=== PATIENT | male | born 1980 | race Caucasian/White ===

== ENCOUNTER 2016-08-11 18:35 | Observation (INO) | payer BC, OTHER ==
[~2016-08-11] VITALS: Ht 172.7 cm; Wt 92.8 kg
[2016-08-11] MEDS ORDERED: ASCA500 PO (19:43)
[2016-08-11 19:47] LABS: BASO % 0.7 %; BASO ABS # 0.08 K/uL (0-0.2); COMPLETE YES; EOS % 15.8 %; HEMATOCRIT 47.1 % (42-52); IG% 0.4 %; LYMPH % 32.3 %; LYMPH ABS # 3.61 K/uL (1.2-3.4); MEAN CELL VOLUME 83.2 fL (80-100); MEAN CORPUSCULAR HEMOGLOBIN 29.5 pg (25-34); MEAN CORPUSCULAR HGB CONC 35.5 g/dl (32-36); MEAN PLATELET VOLUME 9.1 fL (7.4-10.4); MONO % 5.6 %; NEUT % 45.2 %; PLATELET COUNT 213 K/uL (130-400); RED BLOOD COUNT 5.66 M/uL (4.7-6.1); URINE APPEARANCE CLEAR (CLEAR); URINE BILIRUBIN NEG (NEG); URINE COLOR YELLOW; URINE NITRITE NEG (NEG); UROBILINOGEN NEG (NEG); WHITE BLOOD COUNT 11.16 K/uL (4.8-10.8); ZZUR CULT IF INDIC CLEAN CATCH NO
[2016-08-11 19:52] LABS: MANUAL MICROSCOPIC REQUIRED? NO; REVIEW REQ? NO
[2016-08-11 19:56] LABS: BUN/CREATININE RATIO 12.1 (10-20); CALCIUM 9.5 mg/dl (8.5-10.1); CREATININE 1.2 mg/dl (0.60-1.40)
[2016-08-11 19:58] LABS: ALB/GLOB RATIO 1.3 (0.9-2)
[2016-08-11] MEDS ORDERED: ONDANSETRON INJ 2 MG/ML 2 ML VIAL IV STA (20:14)
[2016-08-11] MEDS ORDERED: MoRPHine SULFATE 10 MG/ML CARP/VIAL IV STA (20:14)
[2016-08-11] MEDS ORDERED: SODIUM CHLORIDE 0.9% 1000ML 1,000 ML IV STA (20:14)
--- NOTE | 2016-08-11 21:15 | DIAGNOSTIC IMAGING REPORT ---
ABDOMINAL ULTRASOUND, RIGHT UPPER QUADRANT HISTORY: epigastric abdominal pain . COMPARISON: None. FINDINGS: Pancreas: Obscured by overlying bowel gas. Liver: The liver is echogenic consistent with fatty change. Gallbladder: No gallbladder wall thickening. No gallstones. CBD: 3 mm. Right kidney: No hydronephrosis. IMPRESSION: 1. Normal gallbladder. No gallstones. 2. Hepatic steatosis. 3. Pancreas obscured by overlying bowel gas. Electronically signed by: Toro Bautista M.D. 08/11/2016 9:13 PM Dictated Date/Time: 08/11/2016 9:12 PM
--- NOTE | 2016-08-11 23:48 | EMERGENCY ROOM VISIT NOTE ---
History Report prepared by Shantal: Brendan Pelletier Under the Supervision of: Dr. Yinka Guerrero D.O. First contact with patient: 19:26 Chief Complaint: ABDOMINAL PAIN Stated Complaint: STOMACH PAIN FOR A WEEK Nursing Triage Summary: Patient states "I have stomach pains." Patient reports symptoms started approx 1 week with diarrhea. History of Present Illness The patient is a 36 year old male who presents to the Emergency Room with complaints of intermittent upper abdominal pain beginning one week prior to arrival. He currently rates his discomfort as a 7/10 in severity. The patient states his symptoms worsen with eating, especially with raw vegetables. He notes he will experience abdominal pain approximately an hour after eating. The patient denies experience anything like this in the past. He denies anything improving his discomfort. The patient states his last bowel movement was six hours ago. He denies previous abdominal surgeries. Pt denies headache, change in vision, fevers, chest pain, shortness of breath, nausea, vomiting, diarrhea, pain with urination, and melena. He does admit to diarrhea for the past 2 weeks. No recent travel, drinking from streams, backpacking or hiking. 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 A total of 10 systems reviewed and were otherwise negative. Past Medical & Surgical Surgical Problems: (1) S/P shoulder surgery Family History Diabetes mellitus Hypertension Social History Smoking Status: Former Smoker Alcohol Use: occasionally Drug Use: none Marital Status: Housing Status: lives with family Occupation Status: employed Current/Historical Medications Scheduled Ascorbic Acid (Vitamin C), 500 MG PO DAILY Allergies Coded Allergies: Amoxicillin (Verified Allergy, Severe, HIVES A CHILD, 08/11/16) Clavulanic Acid (Verified Allergy, Severe, HIVES A CHILD, 08/11/16) Physical Exam Vital Signs Date Time Temp Pulse Resp B/P Pulse Ox O2 Delivery O2 Flow Rate FiO2 08/11/16 22:46 60 18 111/74 98 Room Air 08/11/16 21:15 62 18 145/90 97 Room Air 08/11/16 20:38 63 18 131/74 97 Room Air 08/11/16 18:51 36.8 64 18 125/83 97 Room Air Physical Exam GENERAL: sitting up in bed, disheveled, no acute distress, non-toxic EYE EXAM: normal conjunctiva OROPHARYNX: no exudate, no erythema, lips, buccal mucosa, and tongue normal and mucous membranes are moist NECK: supple, no nuchal rigidity, no adenopathy, non-tender LUNGS: Clear to auscultation. Normal chest wall mechanics HEART: no murmurs, S1 normal and S2 normal ABDOMEN: Tenderness to palpation in epigastrium, abdomen soft, normo-active bowel sounds, no masses, no rebound or guarding. BACK: Back is symmetrical on inspection and there is no deformity, no midline tenderness, no CVA tenderness. SKIN: no rashes and no bruising UPPER EXTREMITIES: upper extremities are grossly normal. LOWER EXTREMITIES: No pitting edema. NEURO EXAM: Normal sensorium, cranial nerves II-XII grossly intact, normal speech, no gross weakness of arms, no gross weakness of legs. Medical Decision & Procedures ER Provider Diagnostic Interpretation: Radiology results as stated below per my review and the radiologist's interpretation: ABDOMINAL ULTRASOUND, RIGHT UPPER QUADRANT HISTORY: epigastric abdominal pain . COMPARISON: None. FINDINGS: Pancreas: Obscured by overlying bowel gas. Liver: The liver is echogenic consistent with fatty change. Gallbladder: No gallbladder wall thickening. No gallstones. CBD: 3 mm. Right kidney: No hydronephrosis. IMPRESSION: 1. Normal gallbladder. No gallstones. 2. Hepatic steatosis. 3. Pancreas obscured by overlying bowel gas. Electronically signed by: Toro Bautista M.D. 08/11/2016 9:13 PM Laboratory Results 08/11/16 19:30 Red Blood Count 5.66, Mean Corpuscular Volume 83.2, Mean Corpuscular Hemoglobin 29.5, Mean Corpuscular Hemoglobin Concent 35.5, Mean Platelet Volume 9.1, Neutrophils (%) (Auto) 45.2, Lymphocytes (%) (Auto) 32.3, Monocytes (%) (Auto) 5.6, Eosinophils (%) (Auto) 15.8, Basophils (%) (Auto) 0.7, Neutrophils # (Auto ) 5.04, Lymphocytes # (Auto) 3.61, Monocytes # (Auto) 0.62, Eosinophils # (Auto ) 1.76, Basophils # (Auto) 0.08 08/11/16 19:30 Test 4/26/17 19:30 White Blood Count 11.16 K/uL (4.8-10.8) Red Blood Count 5.66 M/uL (4.7-6.1) Hemoglobin 16.7 g/dL (14.0-18.0) Hematocrit 47.1 % (42-52) Mean Corpuscular Volume 83.2 fL (80-100) Mean Corpuscular Hemoglobin 29.5 pg (25-34) Mean Corpuscular Hemoglobin Concent 35.5 g/dl (32-36) Platelet Count 213 K/uL (130-400) Mean Platelet Volume 9.1 fL (7.4-10.4) Neutrophils (%) (Auto) 45.2 % Lymphocytes (%) (Auto) 32.3 % Monocytes (%) (Auto) 5.6 % Eosinophils (%) (Auto) 15.8 % Basophils (%) (Auto) 0.7 % Neutrophils # (Auto) 5.04 K/uL (1.4-6.5) Lymphocytes # (Auto) 3.61 K/uL (1.2-3.4) Monocytes # (Auto) 0.62 K/uL (0.11-0.59) Eosinophils # (Auto) 1.76 K/uL (0-0.5) Basophils # (Auto) 0.08 K/uL (0-0.2) RDW Standard Deviation 37.1 fL (36.4-46.3) RDW Coefficient of Variation 12.3 % (11.5-14.5) Immature Granulocyte % (Auto) 0.4 % Immature Granulocyte # (Auto) 0.05 K/uL (0.00-0.02) Urine Color YELLOW Urine Appearance CLEAR (CLEAR) Urine pH 5.0 (4.5-7.5) Urine Specific [place] 1.020 (1.000-1.030) Urine Protein NEG (NEG) Urine Glucose (UA) NEG (NEG) Urine Ketones NEG (NEG) Urine Occult Blood NEG (NEG) Urine Nitrite NEG (NEG) Urine Bilirubin NEG (NEG) Urine Urobilinogen NEG (NEG) Urine Leukocyte Esterase NEG (NEG) Anion Gap 5.0 mmol/L (3-11) Est Creatinine Clear Calc Drug Dose 95.0 ml/min Estimated GFR () 90.3 Estimated GFR (Non- 77.9 BUN/Creatinine Ratio 12.1 (10-20) Calcium Level 9.5 mg/dl (8.5-10.1) Total Bilirubin 0.6 mg/dl (0.2-1) Aspartate Amino Transf (AST/SGOT) 27 U/L (15-37) Alanine Aminotransferase (ALT/SGPT) 38 U/L (12-78) Alkaline Phosphatase 75 U/L (45-117) Total Protein 7.9 gm/dl (6.4-8.2) Albumin 4.5 gm/dl (3.4-5.0) Globulin 3.4 gm/dl (2.5-4.0) Albumin/Globulin Ratio 1.3 (0.9-2) Lipase 1194 U/L (73-393) Laboratory results per my review. Medications Administered Medications (Trade) Dose Ordered Sig/Bee Route Start Time Stop Time Status Last Admin Dose Admin Sodium Chloride (Nss 1000ml) 1,000 ml @ 999 mls/hr Q1H1M STAT IV 08/11/16 20:14 08/11/16 21:14 DC 08/11/16 20:29 999 MLS/HR Morphine Sulfate (MoRPHine SULFATE INJ) 6 mg NOW STAT IV 08/11/16 20:14 08/11/16 20:15 DC 08/11/16 20:29 6 MG Ondansetron HCl (Zofran Inj) 4 mg NOW STAT IV 08/11/16 20:14 08/11/16 20:15 DC 08/11/16 20:30 4 MG ED Course ED COURSE: Vital signs were reviewed and showed normal vitals. The patients medical record was reviewed The above diagnostic studies were performed and reviewed. ED treatments and interventions as stated above. 1952: The patient was evaluated in room C7. A complete history and physical examination was performed. 2013: Ordered Zofran Inj 4 mg IV, Morphine Sulfate 6 mg IV, Sodium Chloride 1, 000 ml @ 999 mls/hr IV. 2200: Reevaluated and updated the patient at this time. 8: I spoke to RANDI Arechiga (Hospitalist) about the patient's case, and he will follow the patient for further evaluation. 2220: Upon reevaluation, the patient is doing well.I discussed my findings with the patient and He understands and agrees with the treatment plan. Based on the patients age, coexisting illnesses, exam and lab findings the decision to treat as an inpatient was made. The patient remained stable while under my care. The patient will be evaluated for further management. Medical Decision Differential diagnoses includes but is not limited to gastritis, peptic ulcer disease, GERD, gallbladder disease, pancreatitis, small bowel obstruction, acute coronary syndrome, pericarditis, ischemic bowel, irritable bowel disease, irritable bowel syndrome, appendicitis, diverticulitis, malignancy, hernia, urinary tract infection, torsion, perforation, trauma, infectious. Patient is a 36-year-old male who presents the ER for a gastric abdominal pain which has been present for the past week. Labs show no significant leukocytosis. BMP along with LFTs, bilirubin was unremarkable. Lipase is elevated at 1200. UA was unremarkable. Ultrasound gallbladder was normal. Patient does not drink alcohol. Patient was given fluids along with morphine and had improvement of his pain. With his symptoms seem present for the past week and worsening/not resolving I felt was prudent for him to be nothing by mouth, hydrated and given pain meds for resolution of his pancreatitis. Patient was updated bedside and discussed with internal medicine permission. Consults Time Called: 2213 Consulting Physician: RANDI Arechiga (Hospitalist) Returned Call: 2217 I spoke to RANDI Arechiga (Hospitalist) about the patient's case, and he will follow the patient for further evaluation. Impression Primary Impression: Pancreatitis Scribe Attestation The scribe's documentation has been prepared under my direction and personally reviewed by me in its entirety. I confirm that the note above accurately reflects all work, treatment, procedures, and medical decision making performed by me. Departure Information Dispostion Being Evaluated By Hospitalist (RANDI Arechiga (Hospitalist)) Referrals Mayra Coe MD (PCP) Problem Qualifiers Primary Impression: Pancreatitis Chronicity: acute Pancreatitis type: unspecified pancreatitis type Acute pancreatitis complication: unspecified Qualified Codes: K85.90 - Acute pancreatitis without necrosis or infection, unspecified
[2016-08-12] MEDS ORDERED: HYDROmorphone INJ 0.5 MG/0.5 ML SYR IV STA (00:16)
[2016-08-12] MEDS ORDERED: ONDANSETRON INJ 2 MG/ML 2 ML VIAL IV STA (00:16)
[2016-08-12] MEDS ORDERED: SODIUM CHLORIDE 0.9% 500ML 500 ML IV STA (00:16)
[2016-08-12] MEDS ORDERED: ACETAMINOPHEN 325 MG TAB PO PRN (00:30)
[2016-08-12] MEDS ORDERED: ONDANSETRON INJ 2 MG/ML 2 ML VIAL IV PRN (00:30)
[2016-08-12] MEDS ORDERED: ZOLPIDEM TARTRATE 5 MG TAB PO PRN (00:30)
[2016-08-12] MEDS ORDERED: MAGNESIUM HYDROXIDE SUSP 30 ML UDC PO PRN (00:30)
[2016-08-12] MEDS ORDERED: HYDROmorphone INJ 0.5 MG/0.5 ML SYR IV PRN (00:30)
[2016-08-12] MEDS ORDERED: POLYETHYLENE (MIRALAX) 17 GM PACK PO PRN (00:30)
[2016-08-12] MEDS ORDERED: ALUMINUM/MAGNESIUM/SIMETH (MAALOX MAX) 30 ML UDC PO PRN (00:30)
--- NOTE | 2016-08-12 00:43 | History and Physical ---
History & Physical Date & Time of Service: Aug 12, 2016 at 00:33 Chief Complaint: Stomach Pain For A Week Primary Care Physician: Mayra Coe MD History of Present Illness Source: patient 36 y/o M without significant medical history, presenting with B/L upper quadrant abdominal pain x 1 week in addition to diarrhea. The pain worsens 30 min to one hour after eating. He states that the diarrhea occurs approximately 2 hours after eating. He has had nausea but no vomiting, He denies fevers. An US obtained in the ER was negative for biliary disease. Initial labs are notable for mild leukocytosis and an elevated lipase. The pancreas was not visualized on US. 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 Drug Use: none Marital Status: Occupational Status: employed Allergies Coded Allergies: Amoxicillin (Verified Allergy, Severe, HIVES A CHILD, 08/11/16) Clavulanic Acid (Verified Allergy, Severe, HIVES A CHILD, 08/11/16) Home Medications Scheduled Ascorbic Acid (Vitamin C), 500 MG PO DAILY Review of Systems Constitutional: No chills, No fever, No sweats Eyes: No eye pain, No worsening of vision ENT: No hearing loss, No nasal symptoms, No unusual epistaxis Respiratory: No cough, No sputum, No wheezing Cardiovascular: No PND, No chest pain, No orthopnea Abdomen: + diarrhea, + nausea, + pain, No vomiting Musculoskeletal: No joint pain, No muscle pain Genitourinary - Male: No dysuria, No hematuria, No urinary frequency, No urinary urgency Neurologic: No memory loss, No paralysis, No weakness Psychiatric: No depression symptoms Endocrine: No fatigue Hematologic / Lymphatic: No abnormal bleeding/bruising Integumentary: No rash Allergic / Immunologic: No environmental allergies Physical Exam Vital Signs Date Time Temp Pulse Resp B/P Pulse Ox O2 Delivery O2 Flow Rate FiO2 08/11/16 22:46 60 18 111/74 98 Room Air 08/11/16 21:15 62 18 145/90 97 Room Air 08/11/16 20:38 63 18 131/74 97 Room Air 08/11/16 18:51 36.8 64 18 125/83 97 Room Air General Appearance: WD/WN, no apparent distress Head: normocephalic, atraumatic Eyes: normal inspection, PERRL, EOMI ENT: normal ENT inspection, pharynx normal Neck: supple, no JVD Respiratory/Chest: chest non-tender, lungs clear, normal breath sounds, no respiratory distress, no accessory muscle use Cardiovascular: regular rate, rhythm, no edema, no gallop, no JVD, no murmur, normal peripheral pulses Abdomen/GI: normal bowel sounds, non tender, soft, + pertinent finding (There was no abdominal tenderness to palpation) Back: normal inspection, no CVA tenderness Extremities/Musculoskelatal: normal inspection, no calf tenderness, normal capillary refill, no pedal edema, normal range of motion Neurologic/Psych: combination man II-XII nml as tested, no motor/sensory deficits, alert, normal mood/affect, normal reflexes, oriented x 3 Skin: normal color, warm/dry, no rash Diagnostics Laboratory Results Results Past 24 Hours Test 08/11/16 19:30 Range/Units White Blood Count 11.16 4.8-10.8 K/uL Red Blood Count 5.66 4.7-6.1 M/uL Hemoglobin 16.7 14.0-18.0 g/dL Hematocrit 47.1 42-52 % Mean Corpuscular Volume 83.2 80-100 fL Mean Corpuscular Hemoglobin 29.5 25-34 pg Mean Corpuscular Hemoglobin Concent 35.5 32-36 g/dl Platelet Count 213 130-400 K/uL Mean Platelet Volume 9.1 7.4-10.4 fL Neutrophils (%) (Auto) 45.2 % Lymphocytes (%) (Auto) 32.3 % Monocytes (%) (Auto) 5.6 % Eosinophils (%) (Auto) 15.8 % Basophils (%) (Auto) 0.7 % Neutrophils # (Auto) 5.04 1.4-6.5 K/uL Lymphocytes # (Auto) 3.61 1.2-3.4 K/uL Monocytes # (Auto) 0.62 0.11-0.59 K/uL Eosinophils # (Auto) 1.76 0-0.5 K/uL Basophils # (Auto) 0.08 0-0.2 K/uL RDW Standard Deviation 37.1 36.4-46.3 fL RDW Coefficient of Variation 12.3 11.5-14.5 % Immature Granulocyte % (Auto) 0.4 % Immature Granulocyte # (Auto) 0.05 0.00-0.02 K/uL Urine Color YELLOW Urine Appearance CLEAR CLEAR Urine pH 5.0 4.5-7.5 Urine Specific [place] 1.020 1.000-1.030 Urine Protein NEG NEG Urine Glucose (UA) NEG NEG Urine Ketones NEG NEG Urine Occult Blood NEG NEG Urine Nitrite NEG NEG Urine Bilirubin NEG NEG Urine Urobilinogen NEG NEG Urine Leukocyte Esterase NEG NEG Sodium Level 142 136-145 mmol/L Potassium Level 4.0 3.5-5.1 mmol/L Chloride Level 108 98-107 mmol/L Carbon Dioxide Level 29 21-32 mmol/L Anion Gap 5.0 3-11 mmol/L Blood Urea Nitrogen 14 7-18 mg/dl Creatinine 1.20 0.60-1.40 mg/dl Est Creatinine Clear Calc Drug Dose 95.0 ml/min Estimated GFR () 90.3 Estimated GFR (Non- 77.9 BUN/Creatinine Ratio 12.1 10-20 Random Glucose 86 70-99 mg/dl Calcium Level 9.5 8.5-10.1 mg/dl Total Bilirubin 0.6 0.2-1 mg/dl Aspartate Amino Transf (AST/SGOT) 27 15-37 U/L Alanine Aminotransferase (ALT/SGPT) 38 12-78 U/L Alkaline Phosphatase 75 45-117 U/L Total Protein 7.9 6.4-8.2 gm/dl Albumin 4.5 3.4-5.0 gm/dl Globulin 3.4 2.5-4.0 gm/dl Albumin/Globulin Ratio 1.3 0.9-2 Lipase 1194 73-393 U/L Diagnostic Radiology US abdomen 1. Normal gallbladder. No gallstones. 2. Hepatic steatosis. 3. Pancreas obscured by overlying bowel gas. Impression Assessment and Plan 36 y/o M without significant medical history, presenting with B/L upper quadrant abdominal pain x 1 week in addition to diarrhea. The pain worsens 30 min to one hour after eating. He states that the diarrhea occurs approximately 2 hours after eating. He has had nausea but no vomiting, He denies fevers. An US obtained in the ER was negative for biliary disease. Initial labs are notable for mild leukocytosis and an elevated lipase. The pancreas was not visualized on US. As his pain is b/l and his exam and labs are equivocal, this may be either a gallbladder or pancreatic process leading to diarrhea and less likely an infectious process. We will treat conservatively with IVF, pain control and antiemetics. The pt will be kept NPO pending AM reevaluation. If there is no improvement we would consider an abdominal CT, a PIPIDA scan and a GI consult. Quantitative fecal fat ordered. We will culture his stool as based on his symptoms and his vocation, giardia may be a consideration. Full - Code - Lovenox prophylaxis Total time for this admit including review of labs, meds, US - discussion with Pt abd ER attending - 30 min VTE Prophylaxis VTE Risk Assessment Done? Y/N: Yes Risk Level: Low
[2016-08-12] MEDS ORDERED: IV FLUIDS COMPLETED PRN (01:45)
[2016-08-12] MEDS: D5W AND NSS 1,000 ML IV SCH ×2 (01:45→06:29)
[2016-08-12 01:49] VITALS: BP 118/70; PULSE 51; TEMP 36.4; O2SAT 96; Ht 172.7 cm; Wt 92.8 kg
[2016-08-12 06:40] LABS: INR 1.1 (0.9-1.1); PROTHROMBIN TIME (PATIENT) 11.9 SECONDS (9.0-12.0)
[2016-08-12 07:05] LABS: BUN/CREATININE RATIO 9.8 (10-20); CALCIUM 8.1 mg/dl (8.5-10.1); CREATININE 1.1 mg/dl (0.60-1.40); MAGNESIUM 2.1 mg/dl (1.8-2.4); POTASSIUM 3.9 mmol/L (3.5-5.1)
[2016-08-12 07:29] VITALS: BP 111/64; PULSE 62; TEMP 36.5; O2SAT 97
[2016-08-12] MEDS ORDERED: ENOXAPARIN 40 MG/0.4 ML SYR SQ SCH (08:00)
[2016-08-12] MEDS ORDERED: OPTIRAY 320 IV PRN (11:00)
--- NOTE | 2016-08-12 14:14 | Hospitalist Progress Note ---
Hospitalist Progress Note Date of Service Aug 12, 2016. Subjective improved abd pain. no n/v. Medications Medications (Trade) Dose Ordered Sig/Bee Route Start Time Stop Time Status Last Admin Dose Admin Sodium Chloride (Nss 1000ml) 1,000 ml @ 999 mls/hr Q1H1M STAT IV 08/11/16 20:14 08/11/16 21:14 DC 08/11/16 20:29 999 MLS/HR Morphine Sulfate (MoRPHine SULFATE INJ) 6 mg NOW STAT IV 08/11/16 20:14 08/11/16 20:15 DC 08/11/16 20:29 6 MG Ondansetron HCl (Zofran Inj) 4 mg NOW STAT IV 08/11/16 20:14 08/11/16 20:15 DC 08/11/16 20:30 4 MG Hydromorphone HCl (Dilaudid Inj) 0.5 mg NOW STAT IV 08/12/16 00:16 08/12/16 00:17 DC 08/12/16 00:39 0.5 MG Ondansetron HCl 4 mg 4 mg NOW STAT IV 08/12/16 00:16 08/12/16 00:17 DC 08/12/16 00:39 4 MG Sodium Chloride (Nss 500ml) 500 ml @ 999 mls/hr Q31M STAT IV 08/12/16 00:16 08/12/16 00:46 DC 08/12/16 00:38 999 MLS/HR Enoxaparin Sodium 40 mg 40 mg Q24H SQ 08/12/16 08:00 09/11/16 07:59 08/12/16 09:43 40 MG Dextrose/Sodium Chloride (D5W And Nss) 1,000 ml @ 200 mls/hr Q5H IV 08/12/16 00:30 08/12/16 10:29 DC 08/12/16 06:29 200 MLS/HR Miscellaneous (Iv Fluids Completed) 1 ea PRN PRN N/A 08/12/16 01:45 08/12/17 01:44 08/12/16 12:18 1 EA Objective Vital Signs Date Time Temp Pulse Resp B/P Pulse Ox O2 Delivery O2 Flow Rate FiO2 08/12/16 07:44 Room Air 08/12/16 07:29 36.5 62 18 111/64 97 Room Air 08/12/16 01:49 36.4 51 16 118/70 96 Room Air 08/12/16 01:32 36.8 63 18 124/77 98 08/12/16 01:28 63 18 124/77 98 Room Air 08/12/16 00:24 63 18 124/77 98 Room Air 08/11/16 22:46 60 18 111/74 98 Room Air 08/11/16 21:15 62 18 145/90 97 Room Air 08/11/16 20:38 63 18 131/74 97 Room Air 08/11/16 18:51 36.8 64 18 125/83 97 Room Air Physical Exam General Appearance: WD/WN Eyes: normal inspection, PERRL ENT: normal ENT inspection, hearing grossly normal Neck: supple, no adenopathy Respiratory/Chest: chest non-tender, lungs clear Cardiovascular: regular rate, rhythm, no edema, no gallop, + JVD Abdomen: normal bowel sounds, soft Extremities: normal range of motion, non-tender Neurologic/Psychiatric: stroke program coordinator II-XII nml as tested, alert, oriented x 3 Laboratory Results Last 24 Hours Test 08/11/16 19:30 08/12/16 00:55 08/12/16 06:14 White Blood Count 11.16 K/uL Red Blood Count 5.66 M/uL Hemoglobin 16.7 g/dL Hematocrit 47.1 % Mean Corpuscular Volume 83.2 fL Mean Corpuscular Hemoglobin 29.5 pg Mean Corpuscular Hemoglobin Concent 35.5 g/dl Platelet Count 213 K/uL Mean Platelet Volume 9.1 fL Neutrophils (%) (Auto) 45.2 % Lymphocytes (%) (Auto) 32.3 % Monocytes (%) (Auto) 5.6 % Eosinophils (%) (Auto) 15.8 % Basophils (%) (Auto) 0.7 % Neutrophils # (Auto) 5.04 K/uL Lymphocytes # (Auto) 3.61 K/uL Monocytes # (Auto) 0.62 K/uL Eosinophils # (Auto) 1.76 K/uL Basophils # (Auto) 0.08 K/uL RDW Standard Deviation 37.1 fL RDW Coefficient of Variation 12.3 % Immature Granulocyte % (Auto) 0.4 % Immature Granulocyte # (Auto) 0.05 K/uL Urine Color YELLOW Urine Appearance CLEAR Urine pH 5.0 Urine Specific [place] 1.020 Urine Protein NEG Urine Glucose (UA) NEG Urine Ketones NEG Urine Occult Blood NEG Urine Nitrite NEG Urine Bilirubin NEG Urine Urobilinogen NEG Urine Leukocyte Esterase NEG Sodium Level 142 mmol/L 144 mmol/L Potassium Level 4.0 mmol/L 3.9 mmol/L Chloride Level 108 mmol/L 112 mmol/L Carbon Dioxide Level 29 mmol/L 27 mmol/L Anion Gap 5.0 mmol/L 5.0 mmol/L Blood Urea Nitrogen 14 mg/dl 11 mg/dl Creatinine 1.20 mg/dl 1.10 mg/dl Est Creatinine Clear Calc Drug Dose 95.0 ml/min 103.6 ml/min Estimated GFR () 90.3 100.3 Estimated GFR (Non- 77.9 86.5 BUN/Creatinine Ratio 12.1 9.8 Random Glucose 86 mg/dl 123 mg/dl Calcium Level 9.5 mg/dl 8.1 mg/dl Total Bilirubin 0.6 mg/dl Aspartate Amino Transf (AST/SGOT) 27 U/L Alanine Aminotransferase (ALT/SGPT) 38 U/L Alkaline Phosphatase 75 U/L Total Protein 7.9 gm/dl Albumin 4.5 gm/dl Globulin 3.4 gm/dl Albumin/Globulin Ratio 1.3 Lipase 1194 U/L 148 U/L Prothrombin Time 11.9 SECONDS Prothromb Time International Ratio 1.1 Magnesium Level 2.1 mg/dl Diagnostic Results CT abdomen and pelvis is pending. Assessment and Plan Abd pain. Elevated lipase at admit. Now back to normal. Improved abd. pain. No hx of pancretitis in the past, No hx of gallstones. No hx of gastritis. Will check CT abdomen and pelvis to assess pancreas. advance diet. If CT a/p is normal pt stable for DC and follow up with GI as OP
--- NOTE | 2016-08-12 14:14 | DIAGNOSTIC IMAGING REPORT ---
ABDOMINAL CT WITH AND WITHOUT INTRAVENOUS CONTRAST, PANCREAS PROTOCOL HISTORY: Upper abdominal pain. Acute pancreatitis TECHNIQUE: Multiaxial CT images of the abdomen were performed both before and after the intravenous administration of contrast to evaluate the pancreas. COMPARISON STUDY: None. FINDINGS: The lung bases are essentially clear. No suspicious lytic or blastic osseous lesions. Small hiatus hernia. No hepatic or splenic masses. The spleen is enlarged measuring 15 cm in length. The adrenal glands, kidneys, and gallbladder are unremarkable. No retroperitoneal lymphadenopathy. The visualized loops of bowel show no wall thickening or obstruction. The pancreas enhances normally. No peripancreatic inflammatory change. No pancreatic masses. The main pancreatic duct is not distended. IMPRESSION: 1. Splenomegaly. 2. Normal pancreas. Electronically signed by: Toro Bautista M.D. 08/12/2016 2:12 PM Dictated Date/Time: 08/12/2016 1:56 PM
[2016-08-12 15:33] VITALS: BP 113/68; PULSE 64; TEMP 36.6; O2SAT 98
--- NOTE | 2016-08-12 16:53 | Discharge Instructions ---
Discharge Instructions Date of Service Aug 12, 2016. Admission Reason for Admission: Abdominal Pain Discharge Discharge Diagnosis / Problem: Abdominal pain Discharge Goals Goal(s): Decrease discomfort Activity Recommendations Activity Limitations: as noted below Lifting Limitations: gradually increase as tolerated Exercise/Sports Limitations: gradually increase as tolerated May Resume Sexual Activity: when tolerated Shower/Bathe: no limitations Driving or Machine Use: no limitations . Instructions / Follow-Up Instructions / Follow-Up PCP in one week Current Hospital Diet Patient's current hospital diet: Regular Diet Discharge Diet Recommended Diet: AHA Diet (Heart Healthy) Procedures Procedures Performed: ] ABDOMINAL CT WITH AND WITHOUT INTRAVENOUS CONTRAST, PANCREAS PROTOCOL HISTORY: Upper abdominal pain. Acute pancreatitis TECHNIQUE: Multiaxial CT images of the abdomen were performed both before and after the intravenous administration of contrast to evaluate the pancreas. COMPARISON STUDY: None. FINDINGS: The lung bases are essentially clear. No suspicious lytic or blastic osseous lesions. Small hiatus hernia. No hepatic or splenic masses. The spleen is enlarged measuring 15 cm in length. The adrenal glands, kidneys, and gallbladder are unremarkable. No retroperitoneal lymphadenopathy. The visualized loops of bowel show no wall thickening or obstruction. The pancreas enhances normally. No peripancreatic inflammatory change. No pancreatic masses. The main pancreatic duct is not distended. IMPRESSION: 1. Splenomegaly. 2. Normal pancreas. Electronically signed by: Toro Bautista M.D. 08/12/2016 2:12 PM Pending Studies Studies pending at discharge: no Laboratory Results 08/11/16 19:30 Red Blood Count 5.66, Mean Corpuscular Volume 83.2, Mean Corpuscular Hemoglobin 29.5, Mean Corpuscular Hemoglobin Concent 35.5, Mean Platelet Volume 9.1, Neutrophils (%) (Auto) 45.2, Lymphocytes (%) (Auto) 32.3, Monocytes (%) (Auto) 5.6, Eosinophils (%) (Auto) 15.8, Basophils (%) (Auto) 0.7, Neutrophils # (Auto ) 5.04, Lymphocytes # (Auto) 3.61, Monocytes # (Auto) 0.62, Eosinophils # (Auto ) 1.76, Basophils # (Auto) 0.08 08/12/16 06:14 Test 08/11/16 19:30 08/12/16 00:55 08/12/16 06:14 08/12/16 16:50 White Blood Count 11.16 K/uL (4.8-10.8) Red Blood Count 5.66 M/uL (4.7-6.1) Hemoglobin 16.7 g/dL (14.0-18.0) Hematocrit 47.1 % (42-52) Mean Corpuscular Volume 83.2 fL (80-100) Mean Corpuscular Hemoglobin 29.5 pg (25-34) Mean Corpuscular Hemoglobin Concent 35.5 g/dl (32-36) Platelet Count 213 K/uL (130-400) Mean Platelet Volume 9.1 fL (7.4-10.4) Neutrophils (%) (Auto) 45.2 % Lymphocytes (%) (Auto) 32.3 % Monocytes (%) (Auto) 5.6 % Eosinophils (%) (Auto) 15.8 % Basophils (%) (Auto) 0.7 % Neutrophils # (Auto) 5.04 K/uL (1.4-6.5) Lymphocytes # (Auto) 3.61 K/uL (1.2-3.4) Monocytes # (Auto) 0.62 K/uL (0.11-0.59) Eosinophils # (Auto) 1.76 K/uL (0-0.5) Basophils # (Auto) 0.08 K/uL (0-0.2) RDW Standard Deviation 37.1 fL (36.4-46.3) RDW Coefficient of Variation 12.3 % (11.5-14.5) Immature Granulocyte % (Auto) 0.4 % Immature Granulocyte # (Auto) 0.05 K/uL (0.00-0.02) Urine Color YELLOW Urine Appearance CLEAR (CLEAR) Urine pH 5.0 (4.5-7.5) Urine Specific [place] 1.020 (1.000-1.030) Urine Protein NEG (NEG) Urine Glucose (UA) NEG (NEG) Urine Ketones NEG (NEG) Urine Occult Blood NEG (NEG) Urine Nitrite NEG (NEG) Urine Bilirubin NEG (NEG) Urine Urobilinogen NEG (NEG) Urine Leukocyte Esterase NEG (NEG) Total Bilirubin 0.6 mg/dl (0.2-1) Aspartate Amino Transf (AST/SGOT) 27 U/L (15-37) Alanine Aminotransferase (ALT/SGPT) 38 U/L (12-78) Alkaline Phosphatase 75 U/L (45-117) Total Protein 7.9 gm/dl (6.4-8.2) Albumin 4.5 gm/dl (3.4-5.0) Globulin 3.4 gm/dl (2.5-4.0) Albumin/Globulin Ratio 1.3 (0.9-2) Prothrombin Time 11.9 SECONDS (9.0-12.0) Prothromb Time International Ratio 1.1 (0.9-1.1) Anion Gap 5.0 mmol/L (3-11) Est Creatinine Clear Calc Drug Dose 103.6 ml/min Estimated GFR () 100.3 Estimated GFR (Non- 86.5 BUN/Creatinine Ratio 9.8 (10-20) Calcium Level 8.1 mg/dl (8.5-10.1) Magnesium Level 2.1 mg/dl (1.8-2.4) Lipase 148 U/L (73-393) Date/Time Source Procedure Growth Status 08/12/16 16:50 Stool Shiga Toxin Test Pending Solomon Batch 08/12/16 16:50 Stool Stool Culture Pending Solomon Batch Medical Emergencies . Who to Call and When: Medical Emergencies: If at any time you feel your situation is an emergency, please call 911 immediately. . Non-Emergent Contact Non-Emergency issues call your: Primary Care Provider . Past History Medical & Surgical History: (1) Abdominal pain . "Provider Documentation" section prepared by Darrell Chandra. . VTE Core Measure Inpt VTE Proph given/why not?: SCD's
--- NOTE | 2016-08-12 16:55 | Discharge Summary ---
Discharge Summary Date of Service Aug 12, 2016. Discharge Summary Admission Date: Aug 12, 2016 at 00:32 Discharge Date: Aug 12, 2016 Discharge Disposition: Home Principal Diagnosis: Abdominal pain Medication Reconciliation Continued Medications: Ascorbic Acid (Vitamin C) 500 Mg Tab 500 MG PO DAILY TAKES OCCASIONALLY Discharge Exam Physical Exam: General Appearance: WD/WN, no apparent distress Eyes: normal inspection, PERRL ENT: normal ENT inspection, hearing grossly normal Neck: supple, no adenopathy Respiratory/Chest: chest non-tender, lungs clear Cardiovascular: regular rate, rhythm, no edema, no murmur Abdomen / GI: normal bowel sounds, non tender, no organomegaly Extremities: normal inspection, no calf tenderness Neurologic/Psychiatric: 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 Elevated lipase at admit. Now back to normal. Improved abd. pain. No hx of pancretitis in the past, No hx of alcoholism, No hx of gallstones. No hx of gastritis. CT abd/pelvis shows no evidence of pancreatitis.Mild increase in s.lipase likely secondary to diarrheal illness. advance diet. Follow up with PCP as OP Total Time Spent: Less than 30 minutes This includes examination of the patient, discharge planning, medication reconciliation, and communication with other providers. Discharge Instructions Please refer to the electronic Patient Visit Report (Discharge Instructions) for additional information. Follow-Up PCP in one week
[2016-08-12 17:20] VITALS: BP 113/68; PULSE 64; TEMP 36.6; O2SAT 98
[2016-08-19 13:07] LABS: O&P SOURCE OTHER-TOTAL
== END 2016-08-12 17:46 | disposition home or self-care (01) ==
LOC: ENRESERVDT → ENRESERVTM → C.EDB 18:36 → C.4E 08-12 00:32
PROVIDERS: ADMIT Internal Medicine; ATTEND Internal Medicine
DX: R10.10 Upper abdominal pain, unspecified (principal); Z87.891 Personal history of nicotine dependence; Z88.1 Allergy status to other antibiotic agents; Z98.890 Other specified postprocedural states; Z82.49 Family history of ischemic heart disease and other diseases of the circulatory system; Z83.3 Family history of diabetes mellitus